=== PATIENT | female | born 1935 | race Caucasian/White ===

== ENCOUNTER → 2020-06-17 | Outpatient (CLI) | payer MEDICARE ==
[~2020-06-17] MED LIST: ALBU8.5H8 INH; AMIT100T PO; ASPI81TA45 PO; CARV3.1212 PO; CHOL10003 PO; CLOP75TA PO; FURO-93 PO; HYDR-3653 PO; LEVO50TA5 PO; OMEP-110 PO; ROSU10TA2 PO; SACU1TAB PO; ZINC50CA PO
== END | disposition home or self-care (01) ==
LOC: STAR 14:12
PROVIDERS: ATTEND Anesthesiology
DX: Z01.812 Encounter for preprocedural laboratory examination (principal); Z20.828 Contact with and (suspected) exposure to other viral communicable diseases
CPT/HCPCS: 36415; 87635

== ENCOUNTER → 2020-07-29 | Outpatient (CLI) | payer MEDICARE ==
[~2020-07-29] MED LIST changes: +AMIO200T42 PO; +APIX2.5T PO; +ATOR-2 PO; +EPINEPHRINE SYRINGE 0.1 MG/ML, 10ML ONE; +NOREPINEPHRINE 1 MG/ML, 4ML ONE; +SODIUM BICARB 8.4%, 50ML SYRINGE ONE
== END | disposition home or self-care (01) ==
LOC: CVU 12:10
PROVIDERS: ATTEND Internal Medicine Cardiovascular Disease
DX: Z01.810 Encounter for preprocedural cardiovascular examination (principal); I08.3 Combined rheumatic disorders of mitral, aortic and tricuspid valves; R06.02 Shortness of breath; I65.29 Occlusion and stenosis of unspecified carotid artery
CPT/HCPCS: 93306